=== PATIENT | male | born 1990 | race Caucasian/White ===

== ENCOUNTER 2017-09-30 12:15 | Outpatient (CLI) | payer MEDICAID | END 2017-09-30 12:16 | disposition critical access hospital (66) | LOC: EMS 12:15 | PROVIDERS: ATTEND Surgery | DX: R10.9 Unspecified abdominal pain (principal); R11.2 Nausea with vomiting, unspecified; R19.7 Diarrhea, unspecified | CPT/HCPCS: A0425; A0429 ==

== ENCOUNTER 2017-09-30 12:37 | Emergency (ER) | payer MEDICAID ==
[2017-09-30] MEDS ORDERED: ONDANSETRON 4 MG/2 ML VIAL IVP STA (13:03)
[2017-09-30] MEDS ORDERED: KETOROLAC 60 MG/2 ML VIAL IVP STA (13:03)
[2017-09-30] MEDS ORDERED: SODIUM CHLORIDE 0.9% 1,000 ML IV ONE ×2 (13:04)
--- NOTE | 2017-09-30 13:06 | ED Physician Documentation ---
History of Present Illness - Stated complaint Stated Complaint: ABD PX - Chief complaint Chief Complaint: Abd Pain - History obtained from History obtained from: Patient - History of Present Illness Timing: How many days ago (4) Pain level max: 9 Pain level now: 9 Improved by: nothing Worsened by: eating - Additonal information Additional information: Patient is a 27-year-old male who presents to the emergency department with abdominal pain, vomiting, diarrhea for the past 4 days. States that he vomits 2 -3 times a day. Diarrhea is 5-10 times per day. Loose, watery. Nonbloody. No fevers. Did recently travel to the [place] the [facility]. No recent antibiotics. No recent camping. He does use marijuana daily. Also smokes cigarettes. Does not use alcohol. No other illicit drug use. Review of Systems Ten Systems: 10 systems reviewed and negative Constitutional: denies: Fever, Chills Ears: denies: Ear pain Nose: denies: Rhinorrhea / runny nose, Congestion Respiratory: denies: Cough GI: reports: Nausea, Vomiting, Diarrhea, Hematemesis Skin: denies: Rash Musculoskeletal: denies: Neck pain, Back pain Neurologic: denies: Headache PD PAST MEDICAL HISTORY - Past Medical History Past Medical History: No - Past Surgical History Past Surgical History: No - Present Medications Home Medications: Ambulatory Orders Medication Instructions Recorded Confirmed Hydrocodone/Acetaminophen 1 - 2 each PO Q6H PRN #14 tablet 09/30/17 [Hydrocodon-Acetaminophen 5-325] Hyoscyamine Sulfate [Levsin-Sl] 0.125 mg SL Q6H PRN #20 tab.subl 09/30/17 Ondansetron Odt [Zofran] 4 mg TL Q6H PRN #10 tablet 09/30/17 - Allergies Allergies/Adverse Reactions: Allergies Allergy/AdvReac Type Severity Reaction Status Date / Time amoxicillin Allergy Unknown Verified 09/30/17 12:45 - Social History Does the pt smoke?: Yes Smoking Status: Current every day smoker Does the pt drink ETOH?: Yes Does the pt have substance abuse?: Yes Substance Use and Type: Marijuana - Immunizations Immunizations are current?: Yes PD ED PE NORMAL - Vitals Vital signs reviewed: Yes - General General: Alert and oriented X 3, No acute distress - HEENT HEENT: PERRL, Moist mucous membranes - Neck Neck: Supple, no meningeal sign - Cardiac Cardiac: RRR, Strong equal pulses - Respiratory Respiratory: No respiratory distress, Clear bilaterally - Abdomen Abdomen: Soft, Non distended, Other (diffuse TTP, no peritoneal signs.) - Derm Derm: Warm and dry, No rash - Extremities Extremities: No edema, No calf tenderness / cord - Neuro Neuro: Alert and oriented X 3 - Psych Psych: Normal mood, Normal affect Results - Vitals Vitals: Vital Signs - 24 hr 09/30/17 09/30/17 09/30/17 12:42 14:26 15:33 Temperature 36.6 C 98.5 C H 36.8 C Heart Rate 77 63 100 Respiratory 18 16 18 Rate Blood Pressure 122/78 115/68 142/77 H O2 Saturation 100 100 100 09/30/17 16:00 Temperature 36.8 C Heart Rate 100 Respiratory 18 Rate Blood Pressure 142/77 H O2 Saturation 100 Oxygen O2 Source Room air - Labs Labs: Laboratory Tests 09/30/17 09/30/17 13:02 13:02 WBC 8.0 RBC 4.28 L Hgb 13.7 L Hct 40.9 L MCV 95.5 H MCH 32.1 H MCHC 33.6 RDW 14.0 Plt Count 191 MPV 8.7 Neut # (Auto) 6.6 Lymph # (Auto) 0.7 L Garland # (Auto) 0.5 Eos # (Auto) 0.2 Baso # (Auto) 0.0 Absolute Nucleated RBC 0.01 Nucleated RBC % 0.1 Sodium 136 Potassium 4.0 Chloride 102 Carbon Dioxide 27 Anion Gap 7.0 BUN 14 Creatinine 0.8 Estimated GFR (MDRD) 116 Glucose 98 Calcium 8.7 Total Bilirubin 3.0 H AST 13 ALT 15 Alkaline Phosphatase 63 Total Protein 6.8 Albumin 3.6 Globulin 3.2 Albumin/Globulin Ratio 1.1 Lipase 43 - Rads (name of study) CT abdomen and pelvis Radiology: Prelim report reviewed, EMP read contemporaneously, See rad report ( Nonspecific findings of multiple borderline enlarged lymph nodes and a trace amount of intraperitoneal free fluid, likely reactive from a nonspecific intraperitoneal inflammatory process. Normal appendix. No other localizing abnormality demonstrated. ) PD MEDICAL DECISION MAKING - ED course Complexity details: reviewed results, re-evaluated patient, considered differential, d/w patient, d/w family ED course: Patient is a 27-year-old male with what appears to be a viral gastroenteritis. Feels much better after IV fluids, Zofran, Toradol and Ofirmev. Tolerating p.o. well. Will prescribe a small amount of pain medication for home along with Zofran. We will continue supportive care and follow-up with his doctor. Patient is well-appearing, nontoxic. Afebrile. Patient counseled regarding signs and symptoms for which I believe and urgent re-evaluation would be necessary. Patient with good understanding of and agreement to plan and is comfortable going home at this time This document was made in part using voice recognition software. While efforts are made to proofread this document, sound alike and grammatical errors may occur. - Sepsis Event Vital Signs: Vital Signs - 24 hr 09/30/17 09/30/17 09/30/17 12:42 14:26 15:33 Temperature 36.6 C 98.5 C H 36.8 C Heart Rate 77 63 100 Respiratory 18 16 18 Rate Blood Pressure 122/78 115/68 142/77 H O2 Saturation 100 100 100 09/30/17 16:00 Temperature 36.8 C Heart Rate 100 Respiratory 18 Rate Blood Pressure 142/77 H O2 Saturation 100 Oxygen O2 Source Room air Departure - Departure Disposition: 01 Home, Self Care Clinical Impression: Gastroenteritis Condition: Good Instructions: ED Gastroenteritis Viral Follow-Up: your,doctor in 1 week if not better [Other] Prescriptions: Hydrocodone/Acetaminophen [Hydrocodon-Acetaminophen 5-325] 1 - 2 each PO Q6H PRN #14 tablet PRN Reason: pain Hyoscyamine Sulfate [Levsin-Sl] 0.125 mg SL Q6H PRN #20 tab.subl PRN Reason: Abdominal Pain Ondansetron Odt [Zofran] 4 mg TL Q6H PRN #10 tablet PRN Reason: Nausea / Vomiting Comments: Drink plenty of fluids and rest. Return if you worsen. Do not drink alcohol or drive while on narcotic pain medicine. Note that many narcotic pain relievers also contain tylenol/acetaminophen. Please ensure that your total dose of acetaminophen from all sources does not exceed 3 grams (3000mg) per day. You may constipated on this medication, take a stool softener such as "Colace" twice a day while you are on it. Also recommend a [id number]-[id number] laxative such as senna or MiraLAX any day that you do not have a bowel movement. If you received narcotic pain medication in the emergency department, do not drive or operate machinery for the next 24 hours. Forms: Activity restrictions Discharge Date/Time: 09/30/17 15:45
[2017-09-30 13:09] LABS: BASOPHILS % (AUTO) 0.3 %; EOSINOPHILS # (AUTO) 0.2 10^3/uL (0.0-0.7); EOSINOPHILS % (AUTO) 2.1 %; HGB - HEMOGLOBIN 13.7 g/dL (14.0-18.0); LYMPHOCYTES # (AUTO) 0.7 10^3/uL (1.5-3.5); MEAN CORPUSCULAR HEMOGLOBIN 32.1 pg (27.0-31.0); MEAN CORPUSCULAR HGB CONC 33.6 g/dL (32.0-36.0); MEAN CORPUSCULAR VOLUME 95.5 fL (80.0-94.0); MEAN PLATELET VOLUME 8.7 fL (7.4-11.4); MONOCYTES # (AUTO) 0.5 10^3/uL (0.0-1.0); MONOCYTES % (AUTO) 6.6 %; NEUTROPHILS # (AUTO) 6.6 10^3/uL (1.5-6.6); PLT - PLATELET COUNT 191 10^3/uL (130-450); RED BLOOD COUNT 4.28 10^6/uL (4.70-6.10)
[2017-09-30] MEDS ORDERED: IOPAMIDOL-300 100 ML VIAL ONE (13:19)
[2017-09-30 13:22] LABS: ALBUMIN 3.6 g/dL (3.2-5.5); ALBUMIN/GLOBULIN RATIO 1.1 (1.0-2.2); CALCIUM 8.7 mg/dL (8.5-10.3); CREATININE 0.8 mg/dL (0.6-1.2); TOTAL PROTEIN 6.8 g/dL (6.7-8.2)
[2017-09-30] MEDS ORDERED: ACETAMINOPHEN 1,000 MG/100 ML 100 ML IV STA (14:18)
--- NOTE | 2017-09-30 14:36 | CT Preliminary Report ---
Exam: CT ABDOMEN/PELVIS W/ IMPRESSION: 1. Nonspecific findings of multiple borderline enlarged lymph nodes and a trace amount of intraperito anderson free fluid, likely reactive from a nonspecific intraperitoneal inflammatory process. Normal appe ndix. No other localizing abnormality demonstrated. [facility] SITE ID: [id number]
--- NOTE | 2017-09-30 14:36 | CT Report ---
EXAM: CT ABDOMEN AND PELVIS EXAM DATE: 09/30/2017 02:12 PM. CLINICAL HISTORY: Diffuse abd pain. COMPARISONS: None. TECHNIQUE: Routine helical CT imaging was performed through the abdomen and pelvis. IV contrast: 100 ML ISOVUE 300. Enteric contrast: No. Reconstructions: Coronal and sagittal. In accordance with CT protocol optimization, one or more of the following dose reduction techniques w ere utilized for this exam: automated exposure control, adjustment of mA and/or KV based on patient s ize, or use of iterative reconstructive technique. FINDINGS: Lung Bases: Unremarkable. Liver: Normal. No masses. Gallbladder/Bile Ducts: Unremarkable. Spleen: Normal. Pancreas: Normal. Adrenal Glands: Normal. Kidneys: Normal. No masses or hydronephrosis. Peritoneal Cavity/Bowel: There are no dilated bowel loops. No transition zone. Negative for pneumatos is and free air. There is a trace amount of free fluid in the low posterior pelvis. The appendix is v isualized and appears normal measuring 4 mm in diameter. No abscess. There are multiple borderline to mildly enlarged mesenteric lymph nodes. Pelvic Organs: Normal. The bladder and visualized pelvic organs are within normal limits. Vasculature: No aneurysms or other significant abnormality. Bones: No significant abnormality. Other: None. IMPRESSION: 1. Nonspecific findings of multiple borderline enlarged lymph nodes and a trace amount of intraperito anderson free fluid, likely reactive from a nonspecific intraperitoneal inflammatory process. Normal appe ndix. No other localizing abnormality demonstrated. [facility] Referring Provider Line: [phone] SITE ID: [id number]
[2017-09-30] MEDS ORDERED: HYOSCYAMINE SL 0.125 MG TABLET SL STA (15:21)
[2017-09-30] MEDS ORDERED: HYDROcod/ACETAM 5/325 MG TABLET PO STA (15:21)
[2017-09-30 15:35] VITALS: BP 142/77
[2017-10-06] MEDS ORDERED: IOPAMIDOL-300 100 ML VIAL IVP ONE (08:28)
== END 2017-09-30 15:45 | disposition home or self-care (01) ==
LOC: EDUNIT# → ED 12:37
DX: K52.9 Noninfective gastroenteritis and colitis, unspecified (principal); F17.200 Nicotine dependence, unspecified, uncomplicated
CPT/HCPCS: 36415; 74177; 80053; 83690; 85025; 96374; 96375; 99283; A9270; J0131; Q9967